=== PATIENT | male | born 1970 | race Caucasian/White ===

== ENCOUNTER → 2021-10-13 | Outpatient (CLI) | payer OTHER ==
[~2021-10-13] MED LIST: CATHETER FLUSH 10 ML SYR IVP PRN
--- NOTE | 2021-10-13 13:11 | Diagnostic Imaging Report ---
INDICATION: Right upper quadrant pain. Patient was administered 5.0 mCi technetium 99m Choletec intravenously and imaging over the abdomen was performed. After 1 hour patient ingested 8 ounces of Ensure and a gallbladder ejection fraction was calculated. There is homogeneous uptake of activity by the liver. There is prompt excretion of activity into the common duct and gallbladder. There is normal passage of activity into the small bowel. Gallbladder ejection fraction is abnormally low at 7%. Normal values are 35% or greater. IMPRESSION: 1. Patent cystic duct and common bile duct. 2. Low gallbladder ejection fraction of 7%. Dictated by: Dictated on workstation # [id number]
== END ==
LOC: CARD 10:00
PROVIDERS: ATTEND Surgery
DX: R10.11 Right upper quadrant pain (principal)
CPT/HCPCS: 78227; A9537